=== PATIENT | female | born 1965 | race Caucasian/White ===

== ENCOUNTER 2018-12-20 00:03 | Emergency (ER) | payer OTHER ==
[~2018-12-20] VITALS: Ht 160 cm; Wt 74.8 kg
--- NOTE | 2018-12-20 00:03 | NUR ---
PATIENT AMBULATED TO ER BED 8.
[2018-12-20 00:10] VITALS: BP 115/67
--- NOTE | 2018-12-20 00:10 | NUR ---
PT IS A 53 Y/O FEMALE WHO PRESENTS TO THE ED C/O EPIGASTRIC PAIN. PT STATES THAT IT HAS BEEN GOING ON X2 DAYS. PT REPORTS 8/10 ACHING EPIGASTRIC PAIN THAT RADIATES DOWN L AND R ABD. PT DENIES CP, SOB, REPORTS NAUSEA DENIES VOMITING/DIARRHEA. PT AWAKE AND ALERT, RR EVEN/UNLABORED. PT REPOSITIONED FOR COMFORT, BED IN LOWEST POSITION. ER MD DR. PRATT NOTIFIED. WILL CONTINUE TO MONITOR. DENIES PMH NKA
[2018-12-20] MEDS ORDERED: NACL 0.9% 500 ML IV ONE (00:24)
[2018-12-20] MEDS ORDERED: KETOROLAC 30 MG/ML VIAL IVP ONE (00:25)
[2018-12-20] MEDS ORDERED: ONDANSETRON 4 MG/2 ML VIAL IVP ONE (00:25)
[2018-12-20 00:55] LABS: BASOPHILS # (AUTO) 0.1 K/uL (0.00-0.22); BASOPHILS % (AUTO) 1.2 % (0.0-2.0); EOSINOPHILS # (AUTO) 0.3 K/uL (0-0.4); EOSINOPHILS % (AUTO) 3.8 % (0.0-4.0); HEMATOCRIT 38.9 % (36-48); HEMOGLOBIN 13.6 g/dL (12.0-16.0); LYMPHOCYTES % (AUTO) 28.5 % (20.5-51.1); MEAN CORPUSCULAR HEMOGLOBIN 33 pg (27-31); MEAN CORPUSCULAR HGB CONC 35 g/dL (33-37); MEAN CORPUSCULAR VOLUME 93.6 fL (80-94); MONOCYTES # (AUTO) 0.5 K/uL (0.8-1.0); MONOCYTES % (AUTO) 7.7 % (1.7-9.3); NEUTROPHILS # (AUTO) 4.2 K/uL (1.8-7.7); NEUTROPHILS % (AUTO) 58.8 % (42.2-75.2); PLATELET COUNT (AUTO) 272 K/uL (140-450); RED BLOOD CELL COUNT(AUTO) 4.15 MIL/uL (4.20-5.40); RED CELL DISTRIBUTION WIDTH 13.4 % (11.6-13.7); WHITE BLOOD COUNT (AUTO) 7.2 K/uL (4.8-10.8)
[2018-12-20 01:12] LABS: ANION GAP 15.9 (8-16); CARBON DIOXIDE 23.1 mmol/L (21-32)
[2018-12-20 01:25] LABS: ALBUMIN 3.9 g/dL (3.4-5.0); TOTAL BILIRUBIN 0.3 mg/dL (0.0-1.0)
[2018-12-20] MEDS ORDERED: PANTOPRAZOLE 40 MG INJ VIAL IVP ONE (01:30)
--- NOTE | 2018-12-20 01:40 | NUR ---
US AT BEDSIDE.
[2018-12-20 02:07] VITALS: BP 111/68
--- NOTE | 2018-12-20 02:07 | NUR ---
Patient discharged with v/s stable. Written and verbal after care instructions given and explained. Patient alert, oriented and verbalized understanding of instructions. Ambulatory with steady gait. All questions addressed prior to discharge. ID band removed. Patient advised to follow up with PMD. Rx of TRAMADOL, PROTONIX, ZOFRAN ODT given. Patient educated on indication of medication including possible reaction and side effects. Opportunity to ask questions provided and answered.
== END 2018-12-20 02:07 | disposition home or self-care (01) ==
LOC: MED 00:03
DX: K29.00 Acute gastritis without bleeding (principal)
CPT/HCPCS: 36415; 76705; 80053; 81002; 81025; 83690; 85025; 96361; 96374; 96375; 99284; C9113; J1885; J2405; J7030; Q0092

== ENCOUNTER 2019-01-05 17:47 | Emergency (ER) | payer OTHER ==
[~2019-01-05] VITALS: Ht 152.4 cm; Wt 75.7 kg
[2019-01-05 18:44] VITALS: BP 120/73
--- NOTE | 2019-01-05 18:52 | NUR ---
EKG REVIEWED BY WHILE IN BED#4. OK TO SEND TO LOBBY FOR NEXT AVAIL. BED. PATIENT IN NO DISTRESS.NO SOB
--- NOTE | 2019-01-05 19:15 | NUR ---
PT TO ED 12 WITH STEADY GAIT.
--- NOTE | 2019-01-05 19:18 | NUR ---
PT TO ED WITH C/O BILATERAL BREAST PAIN WITH SUBTLE CHEST PAIN PER PT. DENIES SOB. BREASTS ARE PAINFUL TO TOUCH. PT DENIES DRAINAGE OR DISCHARGE. PT PLACED INTO BED, PENDING MD TAI.
[2019-01-05] MEDS ORDERED: DICYCLOMINE HCL LIQUID 10 MG/5 ML UDC PO ONE (19:50)
[2019-01-05] MEDS ORDERED: LIDOCAINE VISCOUS 2% 20 ML UDC PO ONE (19:50)
[2019-01-05] MEDS ORDERED: NACL 0.9% 1,000 ML IV ONE (19:50)
[2019-01-05] MEDS ORDERED: PANTOPRAZOLE 40 MG INJ VIAL IVP ONE (19:50)
[2019-01-05] MEDS ORDERED: ALUMINUM HYD/MAG/SIMETHICONE 30 ML UDC PO ONE (19:50)
--- NOTE | 2019-01-05 19:55 | NUR ---
PT REFUSING IV INSERTION AND IV MEDICATIONS AT THIS TIME. ER MD AWARE.
[2019-01-05] MEDS ORDERED: PANTOPRAZOLE 40 MG TABEC PO ONE (20:05)
[2019-01-05 20:16] LABS: BASOPHILS # (AUTO) 0.1 K/uL (0.00-0.22); EOSINOPHILS # (AUTO) 0.3 K/uL (0-0.4); HEMATOCRIT 37.4 % (36-48); HEMOGLOBIN 13.2 g/dL (12.0-16.0); LYMPHOCYTES # (AUTO) 1.8 K/uL (2.5-16.5); LYMPHOCYTES % (AUTO) 23.1 % (20.5-51.1); MEAN CORPUSCULAR HEMOGLOBIN 33 pg (27-31); MEAN CORPUSCULAR HGB CONC 35 g/dL (33-37); MEAN CORPUSCULAR VOLUME 93.4 fL (80-94); MONOCYTES # (AUTO) 0.4 K/uL (0.8-1.0); MONOCYTES % (AUTO) 5.9 % (1.7-9.3); PLATELET COUNT (AUTO) 277 K/uL (140-450); RED BLOOD CELL COUNT(AUTO) 4.01 MIL/uL (4.20-5.40); RED CELL DISTRIBUTION WIDTH 13.5 % (11.6-13.7); WHITE BLOOD COUNT (AUTO) 7.6 K/uL (4.8-10.8)
[2019-01-05 20:25] LABS: ANION GAP 13.6 (8-16); CREATININE 0.8 mg/dL (0.6-1.3); POTASSIUM 3.6 mmol/L (3.5-5.1)
[2019-01-05 20:31] LABS: ALBUMIN 3.6 g/dL (3.4-5.0); TOTAL BILIRUBIN 0.3 mg/dL (0.0-1.0)
[2019-01-05 21:03] VITALS: BP 118/71
--- NOTE | 2019-01-05 21:04 | NUR ---
Patient discharged with v/s stable. Written and verbal after care instructions given and explained. Patient alert, oriented and verbalized understanding of instructions. Ambulatory with steady gait. All questions addressed prior to discharge. ID band removed. Patient advised to follow up with PMD. Rx of PROTONIX given. Patient educated on indication of medication including possible reaction and side effects. Opportunity to ask questions provided and answered.
== END 2019-01-05 21:04 | disposition home or self-care (01) ==
LOC: MED 17:47
DX: K29.70 Gastritis, unspecified, without bleeding (principal); N64.4 Mastodynia
CPT/HCPCS: 36415; 80053; 85025; 93005; 99284; C9113

== ENCOUNTER 2019-04-21 15:15 | Emergency (ER) | payer OTHER ==
[~2019-04-21] VITALS: Ht 152.4 cm; Wt 71.8 kg
[2019-04-21 15:20] VITALS: BP 111/65
[2019-04-21] MEDS ORDERED: KETOROLAC 60 MG/2 ML VIAL IM ONE (16:10)
[2019-04-21 16:31] LABS: BASOPHILS # (AUTO) 0.1 K/uL (0.00-0.22); BASOPHILS % (AUTO) 0.9 % (0.0-2.0); EOSINOPHILS # (AUTO) 0.2 K/uL (0-0.4); EOSINOPHILS % (AUTO) 2.4 % (0.0-4.0); HEMATOCRIT 40.4 % (36-48); HEMOGLOBIN 13.9 g/dL (12.0-16.0); LYMPHOCYTES # (AUTO) 1.6 K/uL (2.5-16.5); LYMPHOCYTES % (AUTO) 21.7 % (20.5-51.1); MEAN CORPUSCULAR HEMOGLOBIN 31 pg (27-31); MEAN CORPUSCULAR HGB CONC 34 g/dL (33-37); MEAN CORPUSCULAR VOLUME 91.3 fL (80-94); MONOCYTES # (AUTO) 0.5 K/uL (0.8-1.0); MONOCYTES % (AUTO) 6.1 % (1.7-9.3); NEUTROPHILS # (AUTO) 5.1 K/uL (1.8-7.7); NEUTROPHILS % (AUTO) 68.9 % (42.2-75.2); PLATELET COUNT (AUTO) 258 K/uL (140-450); RED BLOOD CELL COUNT(AUTO) 4.42 MIL/uL (4.20-5.40); RED CELL DISTRIBUTION WIDTH 13.5 % (11.6-13.7); WHITE BLOOD COUNT (AUTO) 7.4 K/uL (4.8-10.8)
[2019-04-21] MEDS ORDERED: ACETAMINOPHEN 325 MG TAB PO ONE (16:40)
[2019-04-21 16:41] LABS: CARBON DIOXIDE 28.2 mmol/L (21-32); CREATININE 0.9 mg/dL (0.6-1.3); POTASSIUM 4.2 mmol/L (3.5-5.1)
[2019-04-21 16:47] LABS: ALBUMIN 3.9 g/dL (3.4-5.0); TOTAL BILIRUBIN 0.4 mg/dL (0.0-1.0)
[2019-04-21 17:08] LABS: APPEARANCE,URINE HAZY (CLEAR); BILIRUBIN,URINE NEGATIVE (NEGATIVE); BLOOD, URINE NEGATIVE (NEGATIVE); COLOR,URINE YELLOW (YELLOW); LEUKOCYTE ESTERASE ,URINE TRACE (NEGATIVE); NITRITE, URINE NEGATIVE (NEGATIVE); PH,URINE 6.5 (5.0-9.0); UGLUCOSE NEGATIVE (NEGATIVE)
[2019-04-21 17:17] LABS: RBC,URINE 0-5 /HPF (0-5)
[2019-04-21 18:40] VITALS: BP 117/65
== END 2019-04-21 18:40 | disposition home or self-care (01) ==
LOC: MED 15:15
DX: R10.13 Epigastric pain (principal); R07.81 Pleurodynia
CPT/HCPCS: 36415; 71045; 76705; 80053; 81001; 81025; 83690; 85025; 87086; 99284; Q0092; J1885

== ENCOUNTER 2020-05-01 20:43 | Emergency (ER) | payer OTHER ==
[~2020-05-01] VITALS: Ht 152.4 cm; Wt 68.0 kg
[2020-05-01 20:52] VITALS: BP 132/66
--- NOTE | 2020-05-01 21:00 | NUR ---
pt ambulated to bed 08 with steady gait.
--- NOTE | 2020-05-01 21:02 | NUR ---
pt ambulated to restroom with steady gait and provided urine sample
[2020-05-01] MEDS ORDERED: ONDANSETRON 4 MG/2 ML VIAL IVP ONE (21:10)
[2020-05-01] MEDS ORDERED: MORPHINE SULFATE 4 MG/ML SYR IVP ONE (21:10)
--- NOTE | 2020-05-01 21:15 | NUR ---
Dr. Vallejo at bedside assessing pt.
--- NOTE | 2020-05-01 21:30 | NUR ---
55 year old female presenting to ED with c/o diffuse abdominal pain that is radiating to lower back. states started x 1 day. denies n/v/d. denies headache/ blurry vision. denies dysuria. pt is ambulatory with steady gait. pt connected pulse oximetry monitoring and bp monitoring. MSE completed by Dr. Vallejo. pmhx: hernestoies elli
[2020-05-01 21:51] LABS: BASOPHILS # (AUTO) 0.1 K/uL (0.00-0.22); EOSINOPHILS # (AUTO) 0.3 K/uL (0-0.4); EOSINOPHILS % (AUTO) 3.1 % (0.0-4.0); HEMATOCRIT 39.1 % (36-48); HEMOGLOBIN 13.5 g/dL (12.0-16.0); LYMPHOCYTES # (AUTO) 2.6 K/uL (2.5-16.5); LYMPHOCYTES % (AUTO) 28.1 % (20.5-51.1); MEAN CORPUSCULAR HEMOGLOBIN 33 pg (27-31); MEAN CORPUSCULAR HGB CONC 35 g/dL (33-37); MEAN CORPUSCULAR VOLUME 96.2 fL (80-94); MONOCYTES # (AUTO) 0.7 K/uL (0.8-1.0); MONOCYTES % (AUTO) 7.9 % (1.7-9.3); NEUTROPHILS # (AUTO) 5.4 K/uL (1.8-7.7); NEUTROPHILS % (AUTO) 59.9 % (42.2-75.2); PLATELET COUNT (AUTO) 298 K/uL (140-450); RED BLOOD CELL COUNT(AUTO) 4.07 MIL/uL (4.20-5.40); RED CELL DISTRIBUTION WIDTH 13.2 % (11.6-13.7); WHITE BLOOD COUNT (AUTO) 9.1 K/uL (4.8-10.8)
[2020-05-01 22:21] LABS: APPEARANCE,URINE CLEAR (CLEAR); BILIRUBIN,URINE NEGATIVE (NEGATIVE); BLOOD, URINE NEGATIVE (NEGATIVE); COLOR,URINE YELLOW (YELLOW); LEUKOCYTE ESTERASE ,URINE NEGATIVE (NEGATIVE); NITRITE, URINE NEGATIVE (NEGATIVE); UGLUCOSE NEGATIVE (NEGATIVE)
[2020-05-01 22:23] LABS: ALBUMIN 3.8 g/dL (3.4-5.0); ANION GAP 12.1 (8-16); CREATININE 1.1 mg/dL (0.6-1.3); POTASSIUM 4.1 mmol/L (3.5-5.1); TOTAL BILIRUBIN 0.4 mg/dL (0.0-1.0)
[2020-05-01 22:40] VITALS: BP 126/76
== END 2020-05-02 00:32 | disposition home or self-care (01) ==
LOC: MED 20:43
DX: K57.92 Diverticulitis of intestine, part unspecified, without perforation or abscess without bleeding (principal)
CPT/HCPCS: 36415; 74177; 80053; 81003; 81025; 82150; 83690; 84703; 85025; 96374; 96375; 99285; J2270; J2405; Q9967

== ENCOUNTER 2022-03-07 00:12 | Emergency (ER) | payer OTHER ==
[~2022-03-07] VITALS: Ht 152.4 cm; Wt 71.7 kg
[2022-03-07 00:20] VITALS: BP 134/80
--- NOTE | 2022-03-07 00:23 | NUR ---
TO LOBBY A/W BED AMBULATORY
--- NOTE | 2022-03-07 01:25 | NUR ---
Patient ambulated to bed 11.
--- NOTE | 2022-03-07 01:29 | NUR ---
Patient taken to CT scan via wheel chair.
--- NOTE | 2022-03-07 01:50 | NUR ---
Dr. Howell examining patient.
[2022-03-07 01:51] LABS: BASOPHILS # (AUTO) 0.1 K/uL (0.00-0.22); BASOPHILS % (AUTO) 1.2 % (0.0-2.0); EOSINOPHILS # (AUTO) 0.3 K/uL (0-0.4); EOSINOPHILS % (AUTO) 4.2 % (0.0-4.0); HEMATOCRIT 37.7 % (36-48); HEMOGLOBIN 12.8 g/dL (12.0-16.0); LYMPHOCYTES # (AUTO) 2.9 K/uL (2.5-16.5); LYMPHOCYTES % (AUTO) 39.2 % (20.5-51.1); MEAN CORPUSCULAR HEMOGLOBIN 33 pg (27-31); MEAN CORPUSCULAR HGB CONC 34 g/dL (33-37); MEAN CORPUSCULAR VOLUME 95.7 fL (80-94); MONOCYTES # (AUTO) 0.6 K/uL (0.8-1.0); MONOCYTES % (AUTO) 7.9 % (1.7-9.3); NEUTROPHILS # (AUTO) 3.5 K/uL (1.8-7.7); NEUTROPHILS % (AUTO) 47.5 % (42.2-75.2); PLATELET COUNT (AUTO) 268 K/uL (140-450); RED BLOOD CELL COUNT(AUTO) 3.94 MIL/uL (4.20-5.40); RED CELL DISTRIBUTION WIDTH 13.9 % (11.6-13.7); WHITE BLOOD COUNT (AUTO) 7.5 K/uL (4.8-10.8)
--- NOTE | 2022-03-07 01:53 | NUR ---
57 YO F BIBS W C/O RIGHT ABD PAIN THAT RAD TO PELVIC AREA X 4 DAYS. TENDER TO PALPATION, DENIES PAIN DURING URINATION, SX: TUMMY TUCK AND LIPO IN AUGUST PMH: DENIES
[2022-03-07 01:58] LABS: APPEARANCE,URINE CLEAR (CLEAR); BILIRUBIN,URINE NEGATIVE (NEGATIVE); BLOOD, URINE NEGATIVE (NEGATIVE); COLOR,URINE YELLOW (YELLOW); LEUKOCYTE ESTERASE ,URINE NEGATIVE (NEGATIVE); NITRITE, URINE NEGATIVE (NEGATIVE); UGLUCOSE NEGATIVE (NEGATIVE)
[2022-03-07] MEDS ORDERED: HYDROcodone/APAP 5/325 MG 1 TAB TAB PO ONE (02:00)
[2022-03-07 02:26] LABS: ALBUMIN 3.8 g/dL (3.4-5.0); ANION GAP 12.3 (8-16); CARBON DIOXIDE 27.6 mmol/L (21-32); CREATININE 0.6 mg/dL (0.6-1.3); POTASSIUM 3.9 mmol/L (3.5-5.1); TOTAL BILIRUBIN 0.2 mg/dL (0.0-1.0)
[2022-03-07] MEDS ORDERED: NAPR-54 PO (05:50)
--- NOTE | 2022-03-07 06:02 | NUR ---
Dr. Howell explained results and treatment plans.
[2022-03-07 06:07] VITALS: BP 128/78
--- NOTE | 2022-03-07 06:07 | NUR ---
Patient discharged with v/s stable. Written and verbal after care instructions given and explained for Abdominal pain. Patient alert, oriented and verbalized understanding of instructions. Ambulatory with steady gait. All questions addressed prior to discharge. ID band removed. Patient advised to follow up with PMD. Rx of Naproxen given. Patient educated on indication of medication including possible reaction and side effects. Opportunity to ask questions provided and answered.
== END 2022-03-07 06:07 | disposition home or self-care (01) ==
LOC: MED 00:12
DX: R10.31 Right lower quadrant pain (principal); Z79.899 Other long term (current) drug therapy; Z98.890 Other specified postprocedural states
CPT/HCPCS: 36415; 80053; 81003; 81025; 83690; 85025; 99284

== ENCOUNTER 2022-07-17 22:51 | Emergency (ER) | payer OTHER ==
[~2022-07-17 22:51] MED LIST: NAPR-54 PO
--- NOTE | 2022-07-17 23:16 | NUR ---
ATTEMPTED TO PATIENT FOR TRIAGE, WITH NO SUCCESS.
--- NOTE | 2022-07-18 00:19 | NUR ---
ATTEMPTED TO PATIENT FOR TRIAGE, WITH NO SUCCESS.
== END 2022-07-18 00:19 | disposition left against medical advice (07) ==
LOC: MED 22:51
DX: R10.9 Unspecified abdominal pain (principal); Z53.21 Procedure and treatment not carried out due to patient leaving prior to being seen by health care provider

== ENCOUNTER 2023-01-29 19:39 | Emergency (ER) | payer OTHER ==
[~2023-01-29] VITALS: Ht 152.4 cm; Wt 70.3 kg
[2023-01-29 19:45] VITALS: BP 130/89
--- NOTE | 2023-01-29 19:48 | NUR ---
TO LOBBY A/W BED AMBULATORY
[2023-01-29 21:36] LABS: BASOPHILS # (AUTO) 0.1 K/uL (0.00-0.22); BASOPHILS % (AUTO) 0.7 % (0.0-2.0); EOSINOPHILS # (AUTO) 0.3 K/uL (0-0.4); EOSINOPHILS % (AUTO) 3.3 % (0.0-4.0); HEMATOCRIT 39.5 % (36-48); HEMOGLOBIN 13.9 g/dL (12.0-16.0); LYMPHOCYTES # (AUTO) 2.4 K/uL (2.5-16.5); LYMPHOCYTES % (AUTO) 28.4 % (20.5-51.1); MEAN CORPUSCULAR HEMOGLOBIN 32 pg (27-31); MEAN CORPUSCULAR HGB CONC 35 g/dL (33-37); MEAN CORPUSCULAR VOLUME 92.3 fL (80-94); MONOCYTES # (AUTO) 0.8 K/uL (0.8-1.0); MONOCYTES % (AUTO) 9.5 % (1.7-9.3); NEUTROPHILS # (AUTO) 4.8 K/uL (1.8-7.7); NEUTROPHILS % (AUTO) 58.1 % (42.2-75.2); PLATELET COUNT (AUTO) 303 K/uL (140-450); RED BLOOD CELL COUNT(AUTO) 4.28 MIL/uL (4.20-5.40); RED CELL DISTRIBUTION WIDTH 12.9 % (11.6-13.7); WHITE BLOOD COUNT (AUTO) 8.3 K/uL (4.8-10.8)
[2023-01-29 21:40] LABS: APPEARANCE,URINE CLEAR (CLEAR); BILIRUBIN,URINE NEGATIVE (NEGATIVE); BLOOD, URINE NEGATIVE (NEGATIVE); COLOR,URINE YELLOW (YELLOW); LEUKOCYTE ESTERASE ,URINE NEGATIVE (NEGATIVE); NITRITE, URINE NEGATIVE (NEGATIVE); UGLUCOSE NEGATIVE (NEGATIVE)
[2023-01-29 21:53] LABS: ALBUMIN 3.8 g/dL (3.4-5.0); ANION GAP 14.1 (8-16); CARBON DIOXIDE 26.5 mmol/L (21-32); CREATININE 1.1 mg/dL (0.6-1.3); POTASSIUM 3.6 mmol/L (3.5-5.1); TOTAL BILIRUBIN 0.2 mg/dL (0.0-1.0)
--- NOTE | 2023-01-29 21:55 | NUR ---
Pt to bed 5
--- NOTE | 2023-01-29 22:01 | NUR ---
Patient resting in bed, A/Ox4, chest rise and fall symmetrical, no s/s of distress, on monitor.
[2023-01-29] MEDS ORDERED: MORPHINE SULFATE 2 MG/ML SYR IM STA (22:42)
[2023-01-29] MEDS ORDERED: KETOROLAC 30 MG/ML VIAL IM ONE (23:00)
[2023-01-29] MEDS ORDERED: FAMO-90 PO (23:23)
[2023-01-29] MEDS ORDERED: DOCU-299 PO (23:23)
[2023-01-29] MEDS ORDERED: ONDA-188 PO (23:23)
[2023-01-29] MEDS ORDERED: MAG355OR2 PO (23:23)
[2023-01-29 23:26] VITALS: BP 117/68
--- NOTE | 2023-01-29 23:26 | NUR ---
Patient does not wish to proceed with medical care recommended by Dr. Hurst. Patient given information related to possible complications, up to and including , which could occur as a result of leaving hospital at this time. Patient verbalizes understanding of risks involved leaving against medical advice. Patient has signed AMA form.
== END 2023-01-29 23:26 | disposition left against medical advice (07) ==
LOC: MED 19:39
DX: K76.0 Fatty (change of) liver, not elsewhere classified (principal); R10.9 Unspecified abdominal pain; Z79.899 Other long term (current) drug therapy
CPT/HCPCS: 36415; 74176; 80053; 81003; 83690; 85025; 99284; J1885; J2270

== ENCOUNTER 2023-04-19 13:01 | Emergency (ER) | payer OTHER ==
[~2023-04-19] VITALS: Ht 152.4 cm; Wt 68.9 kg
[~2023-04-19 13:01] MED LIST changes: +DOCU-299 PO; +FAMO-90 PO; +MAG355OR2 PO; +ONDA-188 PO
[2023-04-19 13:05] VITALS: BP 156/99; PULSE 86; RESP 18; TEMP 98; O2SAT 98
[2023-04-19] MEDS ORDERED: diphenhydrAMINE 50 MG/ML VIAL IM ONE (13:45)
[2023-04-19] MEDS ORDERED: KETOROLAC 30 MG/ML VIAL IM ONE (13:45)
[2023-04-19] MEDS ORDERED: ATA25 PO (14:02)
[2023-04-19] MEDS ORDERED: IBUP-2213 PO (14:02)
[2023-04-19 14:25] VITALS: BP 156/99; PULSE 86; RESP 18; TEMP 98; O2SAT 98
== END 2023-04-19 14:25 | disposition home or self-care (01) ==
LOC: MED 13:01
DX: F41.0 Panic disorder [episodic paroxysmal anxiety] (principal); Z79.899 Other long term (current) drug therapy
CPT/HCPCS: 93005; 96372; 99284; J1200; J1885

== ENCOUNTER 2024-03-13 15:07 | Emergency (ER) | payer OTHER ==
[~2024-03-13] VITALS: Ht 152.4 cm; Wt 71.2 kg
[~2024-03-13 15:07] MED LIST changes: +ATA25 PO; +IBUP-2213 PO; +NAPR-337 PO; -NAPR-54 PO
[2024-03-13 15:37] VITALS: BP 135/92; PULSE 79; RESP 20; TEMP 97; O2SAT 99
[2024-03-13 16:27] VITALS: BP 136/90; PULSE 61; RESP 17; TEMP 97.5; O2SAT 100
[2024-03-13 16:49] LABS: BASOPHILS # (AUTO) 0.1 K/uL (0.00-0.22); BASOPHILS % (AUTO) 1.2 % (0.0-2.0); EOSINOPHILS # (AUTO) 0.8 K/uL (0-0.4); EOSINOPHILS % (AUTO) 10.8 % (0.0-4.0); HEMATOCRIT 40.4 % (36-48); HEMOGLOBIN 13.6 g/dL (12.0-16.0); LYMPHOCYTES # (AUTO) 2.4 K/uL (2.5-16.5); LYMPHOCYTES % (AUTO) 34.8 % (20.5-51.1); MEAN CORPUSCULAR HEMOGLOBIN 32 pg (27-31); MEAN CORPUSCULAR HGB CONC 34 g/dL (33-37); MEAN CORPUSCULAR VOLUME 95.9 fL (80-94); MONOCYTES # (AUTO) 0.5 K/uL (0.8-1.0); MONOCYTES % (AUTO) 6.9 % (1.7-9.3); NEUTROPHILS # (AUTO) 3.2 K/uL (1.8-7.7); NEUTROPHILS % (AUTO) 46.3 % (42.2-75.2); PLATELET COUNT (AUTO) 306 K/uL (140-450); RED BLOOD CELL COUNT(AUTO) 4.21 MIL/uL (4.20-5.40); RED CELL DISTRIBUTION WIDTH 13.4 % (11.6-13.7)
[2024-03-13 17:07] LABS: CALCIUM 9.7 mg/dL (8.5-10.1); CARBON DIOXIDE 27.2 mmol/L (21-32); CREATININE 0.8 mg/dL (0.6-1.3); POTASSIUM 4.2 mmol/L (3.5-5.1)
[2024-03-13 17:21] LABS: APPEARANCE,URINE TURBID (CLEAR); BILIRUBIN,URINE NEGATIVE (NEGATIVE); BLOOD, URINE NEGATIVE (NEGATIVE); COLOR,URINE YELLOW (YELLOW); LEUKOCYTE ESTERASE ,URINE NEGATIVE (NEGATIVE); NITRITE, URINE NEGATIVE (NEGATIVE); PH,URINE 6.5 (5.0-9.0); PROTEIN,URINE NEGATIVE (NEGATIVE); UGLUCOSE NEGATIVE (NEGATIVE)
== END 2024-03-13 17:57 | disposition home or self-care (01) ==
LOC: MED 15:07
DX: R42 Dizziness and giddiness (principal); R53.1 Weakness; Z79.899 Other long term (current) drug therapy
CPT/HCPCS: 36415; 80048; 81003; 84484; 85025; 93005; 99284